=== PATIENT | male | born 1955 | race Caucasian/White ===

== ENCOUNTER 2017-07-30 08:16 | Inpatient (IN) | payer OTHER ==
[~2017-07-30] VITALS: Ht 177.8 cm; Wt 163.2 kg
[~2017-07-30 08:16] MED LIST: ALLO300 PO; AMLO10 PO; ASPI325 PO; ATEN100 PO; BUME2 PO; CLON.1 PO; FENO48 PO; FISH OIL 1,0001 EAC1 PO; FOLI1 PO; INSPRA; Isosorbide Mono30 MG PO; LEVSOD50 PO; METO2.5 PO; MULVITMINF PO; NIAC500ER PO; POTA20PAC PO; TOCO400 PO; TRAV.004OP OD; VITNEPH PO
[2017-07-30 08:30] LABS: PCO2 Arterial 27.2 mmHg (35-45)
[2017-07-30 08:58] LABS: BASOPHILS ABSOLUTE AUTO 0.05 K/mm3 (0.00-0.23); BASOPHILS PERCENT AUTO 0 % (0-2); EOSINOPHILS ABSOLUTE AUTO 0.11 K/mm3 (0.00-0.68); EOSINOPHILS PERCENT AUTO 1 % (0-6); Hematocrit 41.1 % (37.0-53.0); Hemoglobin 13.8 g/dL (13.5-17.5); IMMATURE GRAN ABSOLUTE AUTO 0.12 K/mm3 (0.00-0.10); IMMATURE GRAN PERCENT AUTO 1 % (0-1); LYMPHOCYTES ABSOLUTE AUTO 0.83 K/mm3 (0.84-5.20); LYMPHOCYTES PERCENT AUTO 5 % (21-46); MONOCYTES ABSOLUTE AUTO 0.91 K/mm3 (0.16-1.47); MONOCYTES PERCENT AUTO 6 % (4-13); Mean Corpuscular HGB 30.3 pg (26.0-34.0); Mean Corpuscular HGB Conc 33.6 g/dL (31.5-36.5); Mean Corpuscular Volume 90 fL (80-100); Mean Platelet Volume 9.2 fL (9.1-12.4); NEUTROPHILS PERCENT AUTO 87 % (41-73); Platelet Count 260 K/mm3 (150-400); RDW Coefficient Variation 14.6 % (11.7-14.2); RDW Standard Deviation 47.9 fL (35.1-46.3); Red Blood Cell Count 4.55 M/mm3 (4.30-5.90); White Blood Cell Count 15.72 K/mm3 (4.00-11.30)
[2017-07-30 09:08] LABS: International Normalized Ratio 1.28; Prothrombin Time Results 13.4 Sec (9.7-11.5)
[2017-07-30 09:19] LABS: Albumin, Blood 3.4 g/dL (3.4-5.0); Albumin/Globulin Ratio 0.8 (0.8-1.8); Bun/Creatinine Ratio 13.3 (12.0-20.0); Calcium, Blood 9.2 mg/dL (8.5-10.1); Creatinine, Blood 1.58 mg/dL (0.60-1.20); Potassium, Blood 3.6 mmol/L (3.5-5.5); Total Protein, Blood 7.4 g/dL (6.4-8.2); Troponin I 0.263 ng/mL (0.000-0.040)
[2017-07-30] MEDS ORDERED: GABA100 PO (09:57)
[2017-07-30] MEDS ORDERED: METO5A PO (09:58)
[2017-07-30] MEDS ORDERED: POTCHL10ER PO (09:59)
[2017-07-30] MEDS ORDERED: CALC.25 PO (10:00)
[2017-07-30] MEDS ORDERED: AMIL5 PO (10:02)
[2017-07-30] MEDS ORDERED: OLME20 PO (10:02)
[2017-07-30 10:21] LABS: Source, Urine Clean Catch
[2017-07-30 10:33] LABS: Bilirubin, Urine Neg (Neg); Blood, Urine Neg (Neg); Glucose Qualitative, Urine Neg (Neg); Ketones, Urine Neg (Neg); Nitrite, Urine Neg (Neg); Protein, Urine 2+ (Neg); Specific Gravity, Urine 1.015 (1.003-1.022); Urobilinogen, Urine NORM (Normal)
[2017-07-30 10:45] LABS: Appearance, Urine Clear (Clear); Color, Urine Yellow (P-Yellow)
[2017-07-30 10:47] LABS: Bacteria Not Seen /hpf; Red Blood Cells, Urine Not Seen /hpf (0-2); Squamous Epithelial Cells Few /hpf (Few)
[2017-07-30 10:48] LABS: White Blood Cells, Urine 0-2 /hpf (0-5)
[2017-07-30] MEDS ORDERED: Travatan Z5 ML BOTHEYES (11:04)
[2017-07-30 11:05] LABS: Leukocyte Esterase, Urine 1+ (Neg)
[2017-07-30 16:11] LABS: Creatine Kinase MB 1.5 ng/mL (0.0-3.6); Creatine Kinase MB Index 1.3 (0.0-4.0); Troponin I 0.265 ng/mL (0.000-0.040)
[2017-07-30 21:29] LABS: Albumin, Blood 3.4 g/dL (3.4-5.0); Anion Gap 10 mmol/L (6-16); Blood Urea Nitrogen 24 mg/dL (8-24); Bun/Creatinine Ratio 15.7 (12.0-20.0); CO2, Blood 24 mmol/L (21-32); CPK Creatine Kinase 120 U/L (39-308); Calcium, Blood 9.1 mg/dL (8.5-10.1); Chloride, Blood 106 mmol/L (98-108); Creatine Kinase MB 1.1 ng/mL (0.0-3.6); Creatine Kinase MB Index 0.9 (0.0-4.0); Creatinine, Blood 1.53 mg/dL (0.60-1.20); Glomerular Filtration Rate 49 (60-); Glucose, Blood 156 mg/dL (70-99); Phosphorus, Blood 1.7 mg/dL (2.5-4.9); Potassium, Blood 3.7 mmol/L (3.5-5.5); Sodium, Blood 140 mmol/L (136-145); Troponin I 0.143 ng/mL (0.000-0.040)
[2017-07-31 04:41] LABS: BASOPHILS ABSOLUTE AUTO 0.01 K/mm3 (0.00-0.23); BASOPHILS PERCENT AUTO 0 % (0-2); EOSINOPHILS PERCENT AUTO 0 % (0-6); Hematocrit 40.8 % (37.0-53.0); Hemoglobin 13.7 g/dL (13.5-17.5); IMMATURE GRAN ABSOLUTE AUTO 0.07 K/mm3 (0.00-0.10); IMMATURE GRAN PERCENT AUTO 1 % (0-1); LYMPHOCYTES ABSOLUTE AUTO 0.59 K/mm3 (0.84-5.20); LYMPHOCYTES PERCENT AUTO 4 % (21-46); MONOCYTES ABSOLUTE AUTO 0.36 K/mm3 (0.16-1.47); MONOCYTES PERCENT AUTO 3 % (4-13); Mean Corpuscular HGB 30.6 pg (26.0-34.0); Mean Corpuscular HGB Conc 33.6 g/dL (31.5-36.5); Mean Corpuscular Volume 91 fL (80-100); Mean Platelet Volume 9.5 fL (9.1-12.4); NEUTROPHILS ABSOLUTE AUTO 13.21 K/mm3 (1.96-9.15); NEUTROPHILS PERCENT AUTO 93 % (41-73); Platelet Count 232 K/mm3 (150-400); RDW Coefficient Variation 14.6 % (11.7-14.2); RDW Standard Deviation 48.2 fL (35.1-46.3); Red Blood Cell Count 4.48 M/mm3 (4.30-5.90); White Blood Cell Count 14.24 K/mm3 (4.00-11.30)
[2017-07-31 04:57] LABS: Bun/Creatinine Ratio 19.7 (12.0-20.0); Calcium, Blood 8.9 mg/dL (8.5-10.1); Creatinine, Blood 1.37 mg/dL (0.60-1.20); Magnesium, Blood 1.9 mg/dL (1.6-2.4); Phosphorus, Blood 4.1 mg/dL (2.5-4.9); Potassium, Blood 3.8 mmol/L (3.5-5.5)
[2017-08-01 04:15] LABS: BASOPHILS ABSOLUTE AUTO 0.02 K/mm3 (0.00-0.23); BASOPHILS PERCENT AUTO 0 % (0-2); EOSINOPHILS ABSOLUTE AUTO 0.03 K/mm3 (0.00-0.68); EOSINOPHILS PERCENT AUTO 0 % (0-6); Hematocrit 38.8 % (37.0-53.0); Hemoglobin 12.9 g/dL (13.5-17.5); IMMATURE GRAN ABSOLUTE AUTO 0.17 K/mm3 (0.00-0.10); IMMATURE GRAN PERCENT AUTO 1 % (0-1); LYMPHOCYTES ABSOLUTE AUTO 0.91 K/mm3 (0.84-5.20); LYMPHOCYTES PERCENT AUTO 5 % (21-46); MONOCYTES ABSOLUTE AUTO 0.76 K/mm3 (0.16-1.47); MONOCYTES PERCENT AUTO 4 % (4-13); Mean Corpuscular HGB 30.4 pg (26.0-34.0); Mean Corpuscular HGB Conc 33.2 g/dL (31.5-36.5); Mean Corpuscular Volume 91 fL (80-100); Mean Platelet Volume 9.4 fL (9.1-12.4); NEUTROPHILS ABSOLUTE AUTO 15.23 K/mm3 (1.96-9.15); NEUTROPHILS PERCENT AUTO 89 % (41-73); Platelet Count 257 K/mm3 (150-400); RDW Coefficient Variation 14.7 % (11.7-14.2); RDW Standard Deviation 48.7 fL (35.1-46.3); Red Blood Cell Count 4.25 M/mm3 (4.30-5.90); White Blood Cell Count 17.12 K/mm3 (4.00-11.30)
[2017-08-01 04:35] LABS: Bun/Creatinine Ratio 25.5 (12.0-20.0); Calcium, Blood 9.1 mg/dL (8.5-10.1); Creatinine, Blood 1.49 mg/dL (0.60-1.20); Potassium, Blood 3.8 mmol/L (3.5-5.5)
[2017-08-02 05:54] LABS: BASOPHILS ABSOLUTE AUTO 0.02 K/mm3 (0.00-0.23); BASOPHILS PERCENT AUTO 0 % (0-2); EOSINOPHILS ABSOLUTE AUTO 0.05 K/mm3 (0.00-0.68); EOSINOPHILS PERCENT AUTO 0 % (0-6); Hematocrit 40.5 % (37.0-53.0); Hemoglobin 13.3 g/dL (13.5-17.5); IMMATURE GRAN ABSOLUTE AUTO 0.07 K/mm3 (0.00-0.10); IMMATURE GRAN PERCENT AUTO 1 % (0-1); LYMPHOCYTES PERCENT AUTO 8 % (21-46); MONOCYTES ABSOLUTE AUTO 0.66 K/mm3 (0.16-1.47); MONOCYTES PERCENT AUTO 5 % (4-13); Mean Corpuscular HGB Conc 32.8 g/dL (31.5-36.5); Mean Corpuscular Volume 91 fL (80-100); Mean Platelet Volume 9.7 fL (9.1-12.4); NEUTROPHILS PERCENT AUTO 86 % (41-73); Platelet Count 263 K/mm3 (150-400); RDW Coefficient Variation 14.7 % (11.7-14.2); RDW Standard Deviation 48.4 fL (35.1-46.3); Red Blood Cell Count 4.43 M/mm3 (4.30-5.90)
[2017-08-02 06:14] LABS: Bun/Creatinine Ratio 29.6 (12.0-20.0); Creatinine, Blood 1.42 mg/dL (0.60-1.20); Potassium, Blood 3.7 mmol/L (3.5-5.5)
[2017-08-02] MEDS ORDERED: SACC250C PO (10:59)
[2017-08-02] MEDS ORDERED: PRED10 PO (11:00)
[2017-08-02] MEDS ORDERED: AZIT250 PO (11:01)
[2017-08-02] MEDS ORDERED: CEFP200 PO (11:01)
== END 2017-08-02 11:30 | disposition home or self-care (01) | DRG 291 ==
LOC: ER 08:16 → ICUW 09:54 → ICUE 13:22 → MEDS 08-01 14:36 → ENPENDDIS 08-02 10:48 → MEDS 08-02 11:30
PROVIDERS: Emergency Medicine; Hospitalist
PROC: 5A09357 Assistance with Respiratory Ventilation, Less than 24 Consecutive Hours, Continuous Positive Airway Pressure (ICD-10-PCS; principal; 2017-07-30)
DX: I13.0 Hypertensive heart and chronic kidney disease with heart failure and stage 1 through stage 4 chronic kidney disease, or unspecified chronic kidney disease (principal); J96.01 Acute respiratory failure with hypoxia; J18.9 Pneumonia, unspecified organism; E66.2 Morbid (severe) obesity with alveolar hypoventilation; J98.11 Atelectasis; Z68.43 Body mass index [BMI] 50.0-59.9, adult; I50.9 Heart failure, unspecified; N18.9 Chronic kidney disease, unspecified; I25.10 Atherosclerotic heart disease of native coronary artery without angina pectoris; I25.2 Old myocardial infarction; R73.03 Prediabetes; M10.9 Gout, unspecified; E03.9 Hypothyroidism, unspecified; I77.819 Aortic ectasia, unspecified site; D72.829 Elevated white blood cell count, unspecified; T38.0X5A Adverse effect of glucocorticoids and synthetic analogues, initial encounter; G47.61 Periodic limb movement disorder; K21.9 Gastro-esophageal reflux disease without esophagitis; E78.5 Hyperlipidemia, unspecified; N52.9 Male erectile dysfunction, unspecified; Z79.82 Long term (current) use of aspirin; Z79.899 Other long term (current) drug therapy; Z86.2 Personal history of diseases of the blood and blood-forming organs and certain disorders involving the immune mechanism; Z85.46 Personal history of malignant neoplasm of prostate
CPT/HCPCS: 36415; 36600; 71045; 71046; 80048; 80053; 80069; 81001; 82550; 82553; 82803; 83605; 83735; 83880; 84100; 84145; 84484; 85025; 85610; 87040; 87070; 87086; 87205; 93005; 93010; 94640; 94660; 94762; 96374; 97116; 97161; 97530; 99285; C8929; G8978; G8979; J0456; J0696; J1650; J2920; J7030; J7050; J7060; Q9957

== ENCOUNTER 2020-07-17 23:23 | Observation (INO) | payer OTHER ==
[~2020-07-17] VITALS: Ht 177.8 cm; Wt 173.3 kg
[~2020-07-17 23:23] MED LIST changes: +AMIL5 PO; +AZIT250 PO; +CALC.25 PO; +CEFP200 PO; +EUTHYROX88 MCG PO; +GABA100 PO; -LEVSOD50 PO; +METO5A PO; +OLME20 PO; +POTA10T PO; +PRED10 PO; +SACC250C PO; +Travatan Z5 ML BOTHEYES
[2020-07-17 23:47] LABS: BASOPHILS ABSOLUTE AUTO 0.06 K/mm3 (0.00-0.23); BASOPHILS PERCENT AUTO 1 % (0-2); EOSINOPHILS ABSOLUTE AUTO 0.23 K/mm3 (0.00-0.68); EOSINOPHILS PERCENT AUTO 2 % (0-6); Hematocrit 44.8 % (37.0-53.0); IMMATURE GRAN ABSOLUTE AUTO 0.04 K/mm3 (0.00-0.10); IMMATURE GRAN PERCENT AUTO 0 % (0-1); LYMPHOCYTES ABSOLUTE AUTO 2.47 K/mm3 (0.84-5.20); LYMPHOCYTES PERCENT AUTO 26 % (21-46); MONOCYTES ABSOLUTE AUTO 0.98 K/mm3 (0.16-1.47); MONOCYTES PERCENT AUTO 10 % (4-13); Mean Corpuscular HGB 31.1 pg (26.0-34.0); Mean Corpuscular HGB Conc 33.5 g/dL (31.5-36.5); Mean Corpuscular Volume 93 fL (80-100); Mean Platelet Volume 9.6 fL (9.1-12.4); NEUTROPHILS ABSOLUTE AUTO 5.69 K/mm3 (1.96-9.15); NEUTROPHILS PERCENT AUTO 60 % (41-73); Platelet Count 278 K/mm3 (150-400); RDW Coefficient Variation 14.3 % (11.7-14.2); RDW Standard Deviation 48.8 fL (35.1-46.3); Red Blood Cell Count 4.83 M/mm3 (4.30-5.90); White Blood Cell Count 9.47 K/mm3 (4.00-11.30)
[2020-07-18 00:01] LABS: Albumin, Blood 3.9 g/dL (3.4-5.0); Albumin/Globulin Ratio 1.1 (0.8-1.8); Bilirubin, Total 0.7 mg/dL (0.1-1.0); Bun/Creatinine Ratio 10.2 (12.0-20.0); Calcium, Blood 10.2 mg/dL (8.5-10.1); Creatinine, Blood 1.37 mg/dL (0.60-1.20); Globulin, Blood 3.6 g/dL (2.2-4.0); Potassium, Blood 3.5 mmol/L (3.5-5.5); Total Protein, Blood 7.5 g/dL (6.4-8.2)
[2020-07-18] MEDS ORDERED: LOSA50 PO (00:25)
[2020-07-18] MEDS ORDERED: ELIQUIS5 M2 PO (00:28)
--- NOTE | 2020-07-18 02:57 | NUR ---
PT ARRIVED TO ROOM 208 FROM ER. PT A/O, BP ELEVATED, PT DENIES CP/PRESSURE. PACKING IN PLACE TO LEFT NARE, W/SMALL AMT BLOODY DRNG. PT DENIES DIZZINESS/N/V. PT ORIENTED TO ROOM/CALL LIGHT. PLAN TO MONITOR AND TX PER ORDERS.
[2020-07-18 04:48] LABS: Hematocrit 39.2 % (37.0-53.0); Mean Corpuscular HGB 30.8 pg (26.0-34.0); Mean Corpuscular HGB Conc 33.2 g/dL (31.5-36.5); Mean Corpuscular Volume 93 fL (80-100); Mean Platelet Volume 9.9 fL (9.1-12.4); Platelet Count 228 K/mm3 (150-400); RDW Coefficient Variation 14.1 % (11.7-14.2); RDW Standard Deviation 47.8 fL (35.1-46.3); Red Blood Cell Count 4.22 M/mm3 (4.30-5.90); White Blood Cell Count 10.45 K/mm3 (4.00-11.30)
[2020-07-18 05:10] LABS: Bun/Creatinine Ratio 15.2 (12.0-20.0); Calcium, Blood 9.9 mg/dL (8.5-10.1); Creatinine, Blood 1.32 mg/dL (0.60-1.20); Potassium, Blood 3.3 mmol/L (3.5-5.5)
--- NOTE | 2020-07-18 06:26 | NUR ---
PT NEW ADMIT THIS SHIFT. PT BP HAS REMAINED ELEVATED W/NO SIG IMPROVEMENT AFTER PRN BP MEDS. PT HAS DENIED CP/PRESSURE. HR SINUS 60-70'S PER TELE MONITOR. PACKING IN PLACE TO LEFT NARE. PT CONT TO HAVE SOME BLOODY DRNG SEEPING AROUND PACKING. PT HAS DENIED ANY PAIN, DID REPORT MILD UPSET STOMACH, REPORTS "MY STOMACH FEELS LIKE IT'S TIED IN KNOTS" ZOFRAN GIVEN W/REP RELIEF. PT UP INDEP IN ROOM, HAS DENIED DIZZINESS WHEN UP. 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
[2020-07-18] MEDS ORDERED: AMLO5 PO (14:16)
--- NOTE | 2020-07-18 15:16 | NUR ---
DISCHARGE: PACKET PRINTED AND PT EDUCATED. MED REC FAXED TO [facility] IN [place]. PT VERBALIZED UNDERSTANDING. LEFT UNIT VIA WHEELCHAIR WITH THIS RN AT ABOUT 1450
== END 2020-07-18 15:18 | disposition home or self-care (01) ==
LOC: ER 23:23 → SURS 23:24 → ER 07-18 01:14 → SURS 07-18 01:14
PROVIDERS: Emergency Medicine; ADMIT Internal Medicine
DX: R04.0 Epistaxis (principal); D68.32 Hemorrhagic disorder due to extrinsic circulating anticoagulants; T45.515A Adverse effect of anticoagulants, initial encounter; I13.0 Hypertensive heart and chronic kidney disease with heart failure and stage 1 through stage 4 chronic kidney disease, or unspecified chronic kidney disease; I50.32 Chronic diastolic (congestive) heart failure; N18.30 Chronic kidney disease, stage 3 unspecified; I25.10 Atherosclerotic heart disease of native coronary artery without angina pectoris; C61 Malignant neoplasm of prostate; E78.5 Hyperlipidemia, unspecified; E03.9 Hypothyroidism, unspecified; I48.91 Unspecified atrial fibrillation; E87.6 Hypokalemia; K21.9 Gastro-esophageal reflux disease without esophagitis; M10.9 Gout, unspecified; D64.9 Anemia, unspecified; G47.33 Obstructive sleep apnea (adult) (pediatric); I25.2 Old myocardial infarction; E66.01 Morbid (severe) obesity due to excess calories; Z99.89 Dependence on other enabling machines and devices; Z79.82 Long term (current) use of aspirin; Z68.43 Body mass index [BMI] 50.0-59.9, adult
CPT/HCPCS: 30903; 36415; 80048; 80053; 85025; 85027; 96374; 96375; 99284-25; A9270; G0378; J0360; J2405

== ENCOUNTER 2020-07-19 13:18 | Emergency (ER) | payer OTHER ==
[~2020-07-19] VITALS: Ht 177.8 cm; Wt 170.1 kg
[~2020-07-19 13:18] MED LIST changes: +AMLO5 PO; +ELIQUIS5 M2 PO; +LOSA50 PO
== END 2020-07-19 14:10 | disposition home or self-care (01) ==
LOC: ER 13:18
DX: Z48.00 Encounter for change or removal of nonsurgical wound dressing (principal); I25.2 Old myocardial infarction; Z79.899 Other long term (current) drug therapy
CPT/HCPCS: 99282

== ENCOUNTER → 2021-02-22 | Outpatient (CLI) | payer OTHER | END | disposition home or self-care (01) | LOC: LAB SHORT 07:54 | DX: A63.0 Anogenital (venereal) warts (principal) | CPT/HCPCS: 88305 ==

== ENCOUNTER 2021-04-12 06:29 | Day surgery (SDC) | payer OTHER ==
[~2021-04-12] VITALS: Ht 177.8 cm; Wt 180.0 kg
[~2021-04-12 06:29] MED LIST changes: +Aspir 8181 MG PO; +DHA ALGAL-900300 MG PO; +DOCU100 PO; +ERGO400 PO; +MERIBIN5 MG PO; +METO5 PO; +NIAC500 PO; +Vitamin B-Comp1 EACH PO
--- NOTE | 2021-04-12 07:32 | NUR ---
History, Chart, Medications and Allergies reviewed before start of procedure. Lungs clear T/O to Auscultation. Patient states colon prep results clear. Patient confirms NPO status and agrees with scheduled surgery. Pre-Op teaching done. Pt verbalizes understanding. Patient States Post-Procedure ride home has been arranged.
--- NOTE | 2021-04-12 08:00 | NUR ---
04/12/21 0800 Yassine Guzman History, Chart, Medications and Allergies reviewed before start of procedure.MONITOR INTACT WITH CONTINUOUS PULSE OXIMETRY AND INTERMITTENT BP.3-LEAD EKG REVIEWED WITH PHYSICIAN PRIOR TO START OF PROCEDURE.O2 VIA NRB MASK INTACT THROUGHOUT SEDATION/PROCEDURE. See Anesthesia record.
--- NOTE | 2021-04-12 08:41 | NUR ---
PT ABLE TO REPOSITION SELF IN BED, REQUESTING PO FLUIDS.
--- NOTE | 2021-04-12 09:19 | NUR ---
Ambulatory in Day Surgery Discharge instructions reviewed with patient. Patient verbalizes understanding. Copy given to patient to take home. Patient States Post-Procedure ride home has been arranged. Discharged via wheelchair to private car for ride home. ALL BELONGINGS RETURNED TO PATIENT.
== END 2021-04-12 23:38 | disposition home or self-care (01) ==
LOC: ORSCMMR 06:29 → ORD 08:00 → ORSCMMR 23:38
PROVIDERS: Surgery
PROC: 0DJD8ZZ Inspection of Lower Intestinal Tract, Via Natural or Artificial Opening Endoscopic (ICD-10-PCS; principal; 2021-04-12 08:00)
DX: Z12.11 Encounter for screening for malignant neoplasm of colon (principal); G47.33 Obstructive sleep apnea (adult) (pediatric); I50.9 Heart failure, unspecified; E03.9 Hypothyroidism, unspecified; I12.9 Hypertensive chronic kidney disease with stage 1 through stage 4 chronic kidney disease, or unspecified chronic kidney disease; N18.9 Chronic kidney disease, unspecified; Z79.899 Other long term (current) drug therapy
CPT/HCPCS: J2704; J7120

== ENCOUNTER 2022-12-13 08:59 | Day surgery (SDC) | payer OTHER ==
[2022-12-13] VITALS (11 sets, daily range): BP systolic 151–182; BP diastolic 82–115
[~2022-12-13] VITALS: Ht 177.8 cm; Wt 171.0 kg
--- NOTE | 2022-12-13 11:45 | NUR ---
PATIENT ARRIVED TO RECOVERY ROOM WITH HOB FLAT LAYING COMFORTABLY. BILATERAL GROIN SITE C/D/I SOFT/NONTENDER, NO EVIDENCE OF HEMATOMA. VSS ON RA.
[2022-12-13] MEDS ORDERED: CLOP75 PO ×2 (12:07→12:08)
--- NOTE | 2022-12-13 13:46 | NUR ---
PATIENT VOIDING USING URINAL WITHOUT DIFFICULTY. HOB ELEVATED 30 DEGREEES. BILATERAL GROIN SITES C/D/I SOFT/NONTENDER, NO EVIDENCE OF BLEEDING. VSS ON RA
--- NOTE | 2022-12-13 14:17 | NUR ---
PATIENT TOLERATING PO INTAKE WELL. NEW MEDICATION FAXED TO PHARMACY. BILATERAL GROIN SITES C/D/I SOFT/NONTENDER, NO EVIDENCE OF HEMATOMA. VSS ON ROOM AIR
--- NOTE | 2022-12-13 14:32 | NUR ---
PATIENT STANDING AND VOIDING WITHOUT DIFFICULTY. BIALTERAL GROIN SITES C/D/I SOFT/NONTENDER, NO EVIDENCE OF HEMATOMA. VSS ON RA
--- NOTE | 2022-12-13 15:00 | NUR ---
PATIENT DISCHARGED HOME AT THIS TIME. ALL PATIENT BELONGINGS AND PAPERWORK TAKEN HOME WITH PATIENT. DISCHARGE PAPERWORK AND NEW MEDICATION REVIEWED WITH PATIENT. ALL QUESTIONS WERE ANSWERED. BIALTERAL GROIN SITES C/D/I SOFT/NONTENDER, NO EVIDENCE OF HEMATOMA. VSS ON RA. PIV REMOVED WITHOUT DIFFICULTY, CATHETER INTACT. PATIENT WHEELED TO HOSPITAL ENTRANCE AND BOBY ABLE TO PROVIDE TRANSPORTATION HOME.
== END 2022-12-13 15:56 | disposition home or self-care (01) ==
LOC: MHTC 08:59
DX: I77.72 Dissection of iliac artery (principal); I13.0 Hypertensive heart and chronic kidney disease with heart failure and stage 1 through stage 4 chronic kidney disease, or unspecified chronic kidney disease; N18.9 Chronic kidney disease, unspecified; I50.9 Heart failure, unspecified; E78.5 Hyperlipidemia, unspecified; E03.9 Hypothyroidism, unspecified; G47.33 Obstructive sleep apnea (adult) (pediatric)
CPT/HCPCS: 37236; 37252; 75625; 75716; 75774; 76937; 99152; 99153; C1725; C1753; C1760; C1769; C1874; C1887; C1894; J1644; J2250; J3010; J7030; J7050; Q9967